=== PATIENT | female | born 1990 | race Caucasian/White ===

== ENCOUNTER 2016-12-16 15:49 | Inpatient (IN) | payer BC ==
[~2016-12-16] VITALS: Ht 172.7 cm; Wt 93.9 kg
[2016-12-16 16:41] LABS: HEMOGLOBIN 11.2 gm/dl (12.3-15.3); RED BLOOD COUNT 4.16 M/UL (4.00-5.10); WHITE BLOOD COUNT 11.9 K/UL (4.5-11.0)
[2016-12-16 16:55] LABS: BUN/CREATININE RATIO 17 (0-10)
[2016-12-18 05:54] LABS: HEMOGLOBIN 9.5 gm/dl (12.3-15.3)
== END 2016-12-19 14:44 | disposition home or self-care (01) | DRG 766 ==
LOC: GENOP 15:49 → OB 16:06
PROVIDERS: Obstetrics & Gynecology; ADMIT Obstetrics & Gynecology
PROC: 10907ZC Drainage of Amniotic Fluid, Therapeutic from Products of Conception, Via Natural or Artificial Opening (ICD-10-PCS; 2016-12-17)
PROC: 10H07YZ Insertion of Other Device into Products of Conception, Via Natural or Artificial Opening (ICD-10-PCS; 2016-12-17)
PROC: 10D00Z1 Extraction of Products of Conception, Low, Open Approach (ICD-10-PCS; principal; 2016-12-17 17:30)
DX: O13.4 Gestational [pregnancy-induced] hypertension without significant proteinuria, complicating childbirth (principal); Z3A.40 40 weeks gestation of pregnancy; Z37.0 Single live birth; O61.0 Failed medical induction of labor; O48.0 Post-term pregnancy; O76 Abnormality in fetal heart rate and rhythm complicating labor and delivery; O77.0 Labor and delivery complicated by meconium in amniotic fluid; Z88.0 Allergy status to penicillin
CPT/HCPCS: 36415; 80053; 81001; 82800; 83615; 84550; 85014; 85018; 85025; 90715; C9113; J0690; J2274; J2405; J2590; J2765; J2795; J3010; J7120

== ENCOUNTER 2017-01-10 13:33 | Inpatient (IN) | payer BC ==
[~2017-01-10] VITALS: Ht 172.7 cm; Wt 77.6 kg
[2017-01-10 14:08] LABS: RED BLOOD COUNT 3.92 M/UL (4.00-5.10); WHITE BLOOD COUNT 9.4 K/UL (4.5-11.0)
[2017-01-10 14:30] LABS: BUN/CREATININE RATIO 14 (0-10)
== END 2017-01-13 13:23 | disposition home or self-care (01) | DRG 776 ==
LOC: GENOP 13:33 → OB 19:38
PROVIDERS: ADMIT Obstetrics & Gynecology
PROC: 0W9F30Z Drainage of Abdominal Wall with Drainage Device, Percutaneous Approach (ICD-10-PCS; principal; 2017-01-11)
DX: O86.0 Infection of obstetric surgical wound (principal); O86.4 Pyrexia of unknown origin following delivery; B96.89 Other specified bacterial agents as the cause of diseases classified elsewhere
CPT/HCPCS: 10022; 36415; 80053; 81001; 85025; 85610; 85730; 87070; 87075; 87086; 87205; G0378; J1956; J7050; J7120; Q9962